=== PATIENT | female | born 1975 | race Caucasian/White ===

== ENCOUNTER 2023-11-26 06:52 | Day surgery (SDC) | payer BC, OTHER ==
[2023-11-26 07:11] LABS: HEMOGLOBIN 13.1 g/dL (11.2-15.5); MEAN CORPUSCULAR HGB CONC 34.5 g/dL (31.6-35.5); MEAN CORPUSCULAR VOLUME 92.7 fL (81.4-99.0); RED BLOOD CELL COUNT 4.1 M/uL (3.77-5.24); WHITE BLOOD CELL COUNT,WBC 5.3 K/uL (3.2-11.0)
[2023-11-26] MEDS: Nozin Nasal Sanitizer NASBOTH ONE (07:17)
[2023-11-26 07:26] LABS: CALCIUM 8.3 mg/dL (8.5-10.1); CREATININE 0.7 mg/dL (0.6-1.0); EST CRCL DRUG DOSING (CG) 91.01 mL/min; POTASSIUM,K 3.7 mmol/L (3.6-5.2)
[2023-11-26 07:27] LABS: ANION GAP 11.7 mmol/L (5.0-14.0)
[2023-11-26] MEDS ORDERED: Propofol 200 MG/20 ML SDV ONE (07:36)
[2023-11-26] MEDS ORDERED: fentaNYL 250 MCG/5 ML SDV ONE (07:36)
[2023-11-26] MEDS ORDERED: Ondansetron 4 MG/2 ML SDV ONE (07:37)
[2023-11-26] MEDS ORDERED: Dexamethasone 4 MG/ML SDV ONE (07:37)
[2023-11-26] MEDS: Lactated Ringers 1,000 ML IV SCH (07:48)
[2023-11-26] MEDS: ceFAZolin 2 GM in Premix Bag 1 BAG IV ONE (07:48)
[2023-11-26] MEDS: Bupivacaine 0.5% 50 ML MDV ONE (07:55)
[2023-11-26] MEDS: Ondansetron 4 MG/2 ML SDV IVPUSH ONE (11:05)
== END 2023-11-26 13:18 | disposition home or self-care (01) ==
LOC: JP.SDS 06:52
PROVIDERS: ATTEND Specialist
DX: S83.241A Other tear of medial meniscus, current injury, right knee, initial encounter (principal); M22.41 Chondromalacia patellae, right knee; X58.XXXA Exposure to other specified factors, initial encounter
CPT/HCPCS: 29874; 29881; 36415; 80048; 85027; A9270; J0690; J1100; J2405; J2704; J3010; J3490; J7120